=== PATIENT | male | born 1970 | race Two or more races ===

== ENCOUNTER → 2020-09-08 | Outpatient (CLI) | payer OTHER ==
[2020-09-08 09:22] LABS: BASOPHILS % (AUTO) 1 % (0-1); EOSINOPHILS % (AUTO) 2 % (1-7); LYMPHOCYTES % (AUTO) 24 % (22-44); MEAN CORPUSCULAR HEMOGLOBIN 31.8 pg (27.5-34.5); MEAN CORPUSCULAR HGB CONC 34.3 g/dL (33.2-36.2); MEAN PLATELET VOLUME 7.9 fL (7.4-10.4); MONOCYTES % (AUTO) 8 % (2-9); NEUTROPHILS % (AUTO) 64 % (42-75); PLATELET COUNT 322 x10^3/uL (130-400); RED BLOOD COUNT 5.66 x10^6/uL (4.38-5.82); RED CELL DISTRIBUTION WIDTH 13.2 % (9.4-14.8)
[2020-09-08 09:30] LABS: MD NO
[2020-09-08 09:38] LABS: LDL/HDL RATIO 2.6 (0.5-3.0)
== END | disposition home or self-care (01) ==
LOC: LAB 08:55
PROVIDERS: ATTEND Nurse Practitioner Family
DX: Z00.8 Encounter for other general examination (principal); I10 Essential (primary) hypertension
CPT/HCPCS: 36415; 80061; 85025; 87491; 87591